=== PATIENT | female | born 1990 | race Caucasian/White ===

== ENCOUNTER → 2016-04-15 | Outpatient (REF) | payer OTHER | LOC: M SFHCLERA 14:38 | PROVIDERS: ATTEND Nurse Practitioner Family | DX: R50.9 Fever, unspecified (principal) ==

== ENCOUNTER → 2018-03-19 | Outpatient (REF) | payer OTHER | LOC: M SFHCLERA 17:24 | PROVIDERS: ATTEND Physician Assistant | DX: R50.9 Fever, unspecified (principal) ==

== ENCOUNTER → 2020-06-18 | Outpatient (CLI) | payer SELFPAY ==
[~2020-06-18] MED LIST: HUMI40KI2 SC; IRON27TA2 PO; LOPR1TAB7 PO; OMEP1CAP73 PO; VITA50005 PO; VSL#CAP PO; [UNRECOGNIZED DRUG - CODE] SC
== END ==
LOC: M LABSMTC 14:21
PROVIDERS: ATTEND Pediatrics
DX: Z20.822 Contact with and (suspected) exposure to COVID-19 (principal)